=== PATIENT | female | born 1965 | race Hispanic/Latino ===

== ENCOUNTER 2017-02-02 14:26 | Outpatient (CLI) | payer BC ==
--- NOTE | 2017-02-02 15:40 | Mammography Report ---
BILATERAL MAMMOGRAM: FINDINGS: The breast tissue is heterogeneously dense, which could obscure detection of small masses (approximately 50%-75% glandular). No mass, distortion, suspicious calcification, or skin change is seen. No significant changes compared to prior exams dating back to October 2014. CAD was utilized. IMPRESSION: Negative mammogram. There is no mammographic evidence of malignancy. RECOMMENDATION: Follow-up per ACS guidelines. BI-RADS CATEGORY: 1 = Negative ACR BI-RADS MAMMOGRAPHIC CODES: 0 = Needs additional imaging evaluation; 1 = Negative; 2 = Benign; 3 = Probably benign; 4 = Suspicious; 5 = Malignant; 6 = Known biopsy-proven malignancy COMMENT: 1. Dense breast tissue, i.e., adenosis, fibrocystic changes, etc., may obscure an underlying neoplasm. 2. Approximately 10% of cancers are not detected with mammography. 3. A negative mammography report should not delay biopsy if a clinically suspicious mass is present. COMMENT: Patient follow-up letters are generated in [facility].
== END 2017-02-02 14:27 | disposition home or self-care (01) ==
LOC: MAMMO 14:26
DX: Z12.31 Encounter for screening mammogram for malignant neoplasm of breast (principal)
CPT/HCPCS: 77067; G0202

== ENCOUNTER 2018-04-18 13:37 | Outpatient (CLI) | payer BC ==
--- NOTE | 2018-04-18 16:14 | Mammography Report ---
BILATERAL DIGITAL SCREENING MAMMOGRAM with CAD : 04/18/18 13:37:00 CLINICAL: Routine screening. COMPARISON:02/02/17 FINDINGS: The breasts are heterogeneously dense, which may obscure small masses. No mass, architectural distortion or suspicious calcifications. IMPRESSION: No mammographic evidence of malignancy. BI-RADS CATEGORY: 2 -- Benign RECOMMENDATION: Routine mammographic screening in one year. COMMENT: Patient follow-up letters are generated by our [employer] application.
== END 2018-04-18 13:38 | disposition home or self-care (01) ==
LOC: MAMMO 13:37
DX: Z12.31 Encounter for screening mammogram for malignant neoplasm of breast (principal); Z88.0 Allergy status to penicillin
CPT/HCPCS: 77067

== ENCOUNTER 2019-07-02 14:47 | Outpatient (CLI) | payer BC ==
--- NOTE | 2019-07-04 14:29 | Mammography Report ---
DIGITAL SCREENING MAMMOGRAM WITH CAD, 07/02/2019 INDICATION: Routine screening mammography. TECHNIQUE: Digital bilateral 2D mammography was obtained in the craniocaudal and mediolateral obliq ue projections. This examination was interpreted with the benefit of Computer-Aided Detection analysi s. COMPARISON: 03/31/2018 and 02/02/2017 FINDINGS: Breast Density: The breasts are heterogeneously dense, which may obscure small masses. There is no evidence of dominant mass, suspicious calcifications or architectural distortion in eithe r breast. Scattered bilateral calcifications with benign morphology are unchanged. IMPRESSION: No mammographic evidence of malignancy. Follow up recommendation: Routine yearly BI-RADS Category 2: Benign. A "normal" or negative report should not discourage follow up or biopsy of a clinically significant f inding. A written summary of these findings will be mailed to the patient. The patient will be entered into a mammography reporting system which will generate a reminder letter for the patient's next appointmen t at the appropriate interval. The [employer] recommends yearly mammograms starting at age 40 and continuing as l joe as a woman is in good health. Breast MRI is recommended for women with an approximate 20-25% or greater lifetime risk of breast cancer, including women with a strong family history of breast or ova terrance cancer or who have been treated for Hodgkin's disease. Signer Name: Eulogio Mustafa MD Signed: 07/04/2019 2:24 PM Workstation Name: [id number]
== END 2019-07-02 14:48 | disposition home or self-care (01) ==
LOC: MAMMO 14:47
DX: Z12.31 Encounter for screening mammogram for malignant neoplasm of breast (principal)
CPT/HCPCS: 77067

== ENCOUNTER 2021-07-03 13:18 | Outpatient (CLI) | payer BC ==
--- NOTE | 2021-07-06 10:18 | Mammography Report ---
DIGITAL SCREENING MAMMOGRAM WITH CAD, 07/03/2021 CLINICAL INFORMATION / INDICATION: Routine screening mammography. SCREENING MAMMOGRAM TECHNIQUE: Digital bilateral 2D mammography was obtained in the craniocaudal and mediolateral obliqu e projections. This examination was interpreted with the benefit of Computer-Aided Detection analysis . COMPARISON: 04/18/2018, 07/02/2019. FINDINGS: Breast Density: The breasts are heterogeneously dense, which may obscure small masses. No dominant mass, suspicious calcifications, or architectural distortion in the right breast. Asymmetric density upper outer quadrant left breast posterior depth. Spot compression views with poss ible ultrasound is recommended. Previously seen calcifications are stable. IMPRESSION: Asymmetric density left breast. Follow up recommendation: Special View: Spot BI-RADS Category 0: Incomplete. Needs additional imaging evaluation and/or prior mammograms for tu frye. A "normal" or negative report should not discourage follow up or biopsy of a clinically significant f inding. A written summary of these findings will be mailed to the patient. The patient will be entered into a mammography reporting system which will generate a reminder letter for the patient's next appointmen t at the appropriate interval. The [employer] recommends yearly mammograms starting at age 40 and continuing as l joe as a woman is in good health. Breast MRI is recommended for women with an approximate 20-25% or greater lifetime risk of breast cancer, including women with a strong family history of breast or ova terrance cancer or who have been treated for Hodgkin's disease. Signer Name: Augustine Huang MD Signed: 07/06/2021 10:13 AM Workstation Name: [email or web address]
== END 2021-07-03 13:19 | disposition home or self-care (01) ==
LOC: MAMMO 13:18
PROVIDERS: ATTEND Obstetrics & Gynecology
DX: Z12.31 Encounter for screening mammogram for malignant neoplasm of breast (principal)
CPT/HCPCS: 77067

== ENCOUNTER 2021-07-31 09:47 | Outpatient (CLI) | payer BC ==
--- NOTE | 2021-07-31 11:38 | Mammography Report ---
LEFT DIGITAL DIAGNOSTIC MAMMOGRAM WITH CAD , 07/31/2021 LEFT LIMITED BREAST ULTRASOUND CLINICAL INFORMATION / INDICATION: Abnormal left screening mammogram R92.8 TECHNIQUE: Digital left mammographic imaging was performed. Spot compression and magnification views were obtained. Limited ultrasound was performed. This examination was interpreted with the benefit of Computer-Aided Detection (CAD) analysis. COMPARISON: Multiple mammograms including 07/03/2020, 07/02/2019 and 04/18/2018 FINDINGS: Breast Density: The breasts are heterogeneously dense, which may obscure small masses. MAMMOGRAPHIC FINDINGS: Spot magnification views of the upper outer left breast were obtained. Additional imaging confirms distortion with possible small mass in the 1:00 location. Additionally, t here are heterogeneous calcifications at 12:00 spanning 2.8 cm, in close proximity to the distortion/ mass. ULTRASOUND FINDINGS: Targeted ultrasound evaluation was performed of the area of interest. Sonograp hic evaluation of the left breast, upper outer quadrant, demonstrates an irregular solid mass at 12:0 0, 4 cm from nipple, measuring 9 x 8 cm. Adjacent to this mass, is a second round solid irregular mas s measuring 1.4 x 0.9 cm at 12:00, 4 cm from nipple. IMPRESSION: 2 adjacent irregular solid masses at 12:00, as outlined above. Ultrasound-guided biopsy o f the larger solid mass is recommended. If pathology proves to be malignant, then the adjacent hetero geneous calcifications should also be considered highly likely malignant and taken into consideration for potential surgical planning. Follow up recommendation: Biopsy BI-RADS Category 5: Highly Suggestive of Malignancy. A "normal" or negative report should not discourage follow up or biopsy of a clinically significant f inding. A written summary of these findings will be mailed to the patient. The patient will be entered into a mammography reporting system which will generate a reminder letter for the patient's next appointmen t at the appropriate interval. According to the [employer], yearly mammograms are recommended starting at age 40 and continuing as long as a woman is in good health. Breast MRI is recommended for women with an gabriel roximately 20-25% or greater lifetime risk of breast cancer, including women with a strong family his tory of breast or ovarian cancer and women who have been treated for Hodgkin's disease. Signer Name: Jeana Waldrop MD Signed: 07/31/2021 11:33 AM Workstation Name: [id number]
== END 2021-07-31 09:48 | disposition home or self-care (01) ==
LOC: MAMMO 09:47
PROVIDERS: ATTEND Obstetrics & Gynecology
DX: R92.1 Mammographic calcification found on diagnostic imaging of breast (principal); N63.21 Unspecified lump in the left breast, upper outer quadrant; N64.89 Other specified disorders of breast

== ENCOUNTER 2021-08-07 09:39 | Outpatient (CLI) | payer BC ==
--- NOTE | 2021-08-07 12:09 | Ultrasound Report ---
ULTRASOUND GUIDED LEFT BREAST BIOPSY, 08/07/2021 LEFT DIAGNOSTIC MAMMOGRAM CLINICAL INFORMATION / INDICATION: BREAST MASS SEEN ON MAMMOGRAM. COMPARISON: Diagnostic mammogram and left breast ultrasound from 07/31/2021 PROCEDURE: Risks, benefits, and indications to the procedure were discussed with the patient in detail, includin g bleeding, infection, hematoma formation, and inadequate tissue sampling. The patient agreed to proc eed with both verbal and written consent. A timeout procedure was performed with two patient identifi ers. The breast was prepped and draped in the usual sterile fashion. Lidocaine 1% was used for local anest hesia. Under direct ultrasound guidance, 3 separate 14 gauge core samples were obtained of the left b reast nodule. A biopsy marker was then placed. Biopsy device was removed and hemostasis achieved wit h manual pressure. A sterile dressing was applied to the skin. The patient tolerated the procedure without difficulty. No complications were encountered. Postbiopsy instructions were discussed with the patient and given in writing. Specimens were sent to pathology. The patient was then sent for a confirmatory mammogram to demonstrate adequate clip positioning in th e area in question. IMPRESSION: 1. Technically successful ultrasound guided left breast biopsy. 2. Satisfactory positioning of the biopsy clip on the post procedure mammogram. Biopsy results are pending and will be reported in an addendum. Signer Name: Ashutosh Van MD Signed: 08/07/2021 12:04 PM Workstation Name: [id number]
== END 2021-08-07 09:40 | disposition home or self-care (01) ==
LOC: US 09:39
PROVIDERS: ATTEND Obstetrics & Gynecology
DX: R92.8 Other abnormal and inconclusive findings on diagnostic imaging of breast (principal); R92.2 Inconclusive mammogram; N64.89 Other specified disorders of breast; Z88.0 Allergy status to penicillin
CPT/HCPCS: 88305